=== PATIENT | female | born 1945 | race Hispanic/Latino ===

== ENCOUNTER → 2019-07-12 | Day surgery (SDC) | payer MEDICARE, OTHER ==
[2019-07-08 16:00] LABS: PROTHROMBIN TIME 13.7 seconds (11.9-14.5)
[2019-07-08 16:01] LABS: PARTIAL THROMBOPLASTIN TIME 30.3 seconds (23.8-35.5)
[~2019-07-12] MED LIST: AMLODIPINE BESY10 MG PO; ASPIR 8181 MG PO; DICYCLOMINE HCL20 MG PO; FAMOTIDINE20 MG PO; FENTANYL CITRATE/PF 100MCG/2 ML INJ ONE; GLIPIZIDE-METF1 EAC2 PO; LANTUS 3ML100 UNITS/ SQ; LORAZEPAM0.5 MG PO; MELOXICAM7.5 MG PO; MIDAZOLAM HCL 2 MG/2 ML VIAL ONE; PROPOFOL IV EMULSION 10 MG/ML 50 ML VIAL ONE; SIMVASTATIN20 MG PO
--- OUTSIDE RECORDS SUMMARY | 2019-07-12 05:40 | XMS REPORT | Clinical Summary ---
Author Author [facility] Organization [facility] Address Unknown Phone Unavailable Care Team Providers Care Apartment Rental Clerk Name Role Phone Kenny Mary Gibson PCP Allergies Comments Active Allergy Reactions Severity Noted Date Levofloxacin Swelling, Low 07/12/2013 Rash Pt also gets a rash [place] (Prunus Persica) Shortness Of High 01/05/2018 Breath Penicillins Itching, 07/11/2013 Swelling Medications End Date Status Medication Sig Dispensed Refills Start Date Active albuterol (PROVENTIL Inhale 1 puff 0 HFA;VENTOLIN HFA) 90 by mouth via mcg/actuation inhaler inhaler every 6 (six) hours as needed. Active glipiZIDE-metFORMIN Take 1 tablet 0 (METAGLIP) 5-500 mg per by mouth 2 tablet (two) times daily before meals. Active atorvastatin (LIPITOR) 10 Take 40 mg by 0 MG tablet mouth daily . Active aspirin 81 MG chewable Take 81 mg by 0 tablet mouth daily. Active valsartan-hydrochlorothia Take 1 tablet 0 zide (DIOVAN-HCT) by mouth 160-12.5 mg per tablet daily. Active insulin glargine (LANTUS) Inject 30 0 100 unit/mL injection Units subcutaneousl y nightly Use as directed . Active acetaminophen-codeine Take 1 tablet 0 (TYLENOL #3) 300-30 mg by mouth per tablet every 4 (four) hours as needed for Pain. Active khrmyoyxij-yqhvpupiie-jmn Take 1 20 capsule 0 -cod (FIORICET WITH capsule by 6 CODEINE) 82-055-55-30 mg mouth every 4 Cap (four) hours. Active glucometer (FREESTYLE) Use as 1 each 0 Misc directed. 9 Blood glucose meter with strips. 12/10/2018 metoprolol (TOPROL-XL) 25 Take 1 tablet 30 tablet 11 MG 24 hr tablet (25 mg total) 8 by mouth daily. Active Problems Problem Noted Date Pancolitis 01/05/2018 Sepsis 01/05/2018 Diarrhea of infectious origin 01/05/2018 Lactic acidosis 01/05/2018 Chest pain, unspecified type 12/09/2017 Diabetes mellitus 12/09/2017 Hypercholesteremia 12/09/2017 Hypertension 12/09/2017 Encounters Care Team Description Date Type Specialty Hector Bautista Jr., MD Generalized headache (Primary Dx); Hypoglycemia due to insulin; Acute nonintractable headache, unspecified headache type; Essential hypertension 06/03/2019 Emergency Emergency Medicine 06/03/2019 Orders Only General Internal Medicine 06/03/2019 Travel after 07/11/2018 Social History Date Tobacco Use Types Packs/Day Years Used Never Smoker Smokeless Tobacco: Never Used Alcohol Use Drinks/Week oz/Week Comments No Sex Assigned at Date Recorded Not on file Industry Job Start Date Occupation Not on file Not on file Not on file Travel End Travel History Travel Start No recent travel history available. Last Filed Vital Signs Time Taken Vital Sign Reading 06/03/2019 12:29 PM CDT Blood Pressure 126/88 06/03/2019 12:29 PM CDT Pulse 68 06/03/2019 12:29 PM CDT Temperature 37.1 C (98.7 F) 06/03/2019 12:29 PM CDT Respiratory Rate 18 06/03/2019 12:15 PM CDT Oxygen Saturation 97% - Inhaled Oxygen - Concentration 06/03/2019 9:43 AM CDT Weight 64.9 kg (143 lb) 06/03/2019 9:43 AM CDT Height 157.5 cm (5' 2") 06/03/2019 9:43 AM CDT Body Mass Index 26.16 Plan of Treatment Not on file Procedures Comments Procedure Name Priority Date/Time Associated Diagnosis REPORT OF PROCEDURE - 06/08/2019 ENDOSCOPY SCAN 1:50 PM CDT REPORT OF PROCEDURE - 06/08/2019 ENDOSCOPY SCAN 1:50 PM CDT ECG 12-LEAD Routine 06/03/2019 11:37 AM CDT ECG 12-LEAD Routine 06/03/2019 11:37 AM CDT Procedure Note - Interface, External Ris In - 06/03/2019 6:05 PM CDT Ventricula r Rate 85 BPM Atrial Rate 72 BPM QRS Duration 86 ms Q-T Interval 428 ms QTC Calculatio n(Bazett) 509 ms R Ponder 25 degrees T Ponder 256 degrees Suspect unspecifie d pacemaker failure Undetermin ed rhythm Left ventricula r hypertroph y with repolariza tion abnormalit y Prolonged QT Abnormal ECG When compared with ECG of 9 11:09, Significan t changes have occurred ECG 12-LEAD Routine 06/03/2019 11:09 AM CDT Procedure Note - Interface, External Ris In - 06/03/2019 6:05 PM CDT Ventricula r Rate 59 BPM Atrial Rate 59 BPM P-R Interval 142 ms QRS Duration 82 ms Q-T Interval 478 ms QTC Calculatio n(Bazett) 473 ms P Ponder 67 degrees R Ponder 74 degrees T Ponder 69 degrees Sinus bradycardi a Septal infarct (cited on or before 8) Abnormal ECG When compared with ECG of 8 10:18, Questionab le change in QRS axis ECG 12-LEAD STAT 06/03/2019 11:09 AM CDT CBC W/PLT COUNT & AUTO STAT 06/03/2019 DIFFERENTIAL 10:41 AM CDT URINALYSIS W/ REFLEX STAT 06/03/2019 URINE CULTURE 10:41 AM CDT CBC W/PLT COUNT & AUTO STAT 06/03/2019 DIFFERENTIAL 10:41 AM CDT TROPONIN I STAT 06/03/2019 10:41 AM CDT B-TYPE NATRIURETIC FACTOR STAT 06/03/2019 (BNP) 10:41 AM CDT MAGNESIUM STAT 06/03/2019 10:41 AM CDT BASIC METABOLIC PANEL (7) STAT 06/03/2019 10:41 AM CDT XR CHEST 1 VIEW STAT 06/03/2019 PORTABLE/BEDSIDE 10:37 AM CDT after 07/11/2018 Results * EKG-SCANNED (06/08/2019 1:50 PM CDT) Only the most recent of 2 results within the time period is included. Narrative Performed At * ECG 12 lead (06/03/2019 11:37 AM CDT) Only the most recent of 2 results within the time period is included. Specimen Narrative Performed At Ventricular Rate 85 BPM GE MUSE Atrial Rate 72 BPM QRS Duration 86 ms Q-T Interval 428 ms QTC Calculation(Bazett) 509 ms R Ponder 25 degrees T Ponder 256 degrees Demand ventricular pacemaker. Premature ventricular complexes Premature atrial complexes with intermittent aberrant ventricular conduction Left ventricular hypertrophy with repolarization abnormality Prolonged QT Abnormal ECG When compared with ECG of 03-JUN-2019 11:09, Significant changes have occurred Confirmed by Andrew FARIA BASANT ([id number]) on 06/04/2019 12:35:39 PM Procedure Note Interface, External Ris In - 06/04/2019 12:35 PM CDT Ventricular Rate 85 BPM Atrial Rate 72 BPM QRS Duration 86 ms Q-T Interval 428 ms QTC Calculation(Bazett) 509 ms R Ponder 25 degrees T Ponder 256 degrees Demand ventricular pacemaker. Premature ventricular complexes Premature atrial complexes with intermittent aberrant ventricular conduction Left ventricular hypertrophy with repolarization abnormality Prolonged QT Abnormal ECG When compared with ECG of 03-JUN-2019 11:09, Significant changes have occurred Confirmed by Andrew FARIA BASANT ([id number]) on 06/04/2019 12:35:39 PM Performing Organization Address City/State/Zipcode Phone Number [facility] * Urinalysis w/Microscopic + Reflex to Culture (06/03/2019 10:41 AM CDT) Color, UA Light Yellow [facility] Clarity, UA Clear [facility] Specific [place], UA 1.014 1.001 - 1.035 [facility] pH, UA 6.0 5.0 - 8.0 [facility] Protein, UA Negative Negative [facility] Glucose, UA >1000 mg/dL (A) Negative [facility] Ketones, UA Negative Negative [facility] Bilirubin, UA Negative Negative [facility] Blood, UA Negative Negative [facility] Nitrite, UA Negative Negative [facility] Leukocytes, UA Negative Negative [facility] Urobilinogen, UA 0.2 0.2 - 1.0 mg/dL [facility] RBC, UA 1 /HPF [facility] WBC, UA 1 /HPF [facility] Mucus Rare [facility] Squam Epithel, UA 2 /HPF [facility] Specimen Source [facility] Specimen Urine Performing Organization Address City/State/Zipcode Phone Number [facility] [address] [place] [address] [facility] * CBC with platelet count + automated diff (06/03/2019 10:41 AM CDT) WBC 6.2 3.5 - 10.5 K/L [facility] RBC 4.98 3.93 - 5.22 M/L [facility] Hemoglobin 13.3 11.2 - 15.7 GM/DL [facility] Hematocrit 40.3 34.1 - 44.9 % [facility] MCV 80.9 79.4 - 94.8 fL [facility] MCH 26.7 25.6 - 32.2 pg [facility] MCHC 33.0 32.2 - 35.5 GM/DL [facility] RDW 13.6 11.7 - 14.4 % [facility] Platelets 232 150 - 450 K/CU MM [facility] MPV 8.9 (L) 9.4 - 12.3 fL [facility] nRBC 0 0 - 0 /100 WBC [facility] % Neutros 78 % [facility] % Lymphs 15 % [facility] % Monos 5 % [facility] % Eos 1 % [facility] % Baso 0 % [facility] # Neutros 4.84 1.56 - 6.13 K/L [facility] # Lymphs 0.96 (L) 1.18 - 3.74 K/L [facility] # Monos 0.32 0.24 - 0.36 K/L [facility] # Eos 0.09 0.04 - 0.36 K/L [facility] # Baso 0.02 0.01 - 0.08 K/L [facility] Immature 0 0 - 1 % [facility] Granulocytes-[facility] Specimen Blood Performing Organization Address City/State/Zipcode Phone Number [address] [address] [facility] * Troponin I (06/03/2019 10:41 AM CDT) Troponin I <0.01 0.00 - 0.03 ng/mL [facility] Specimen Blood Narrative Performed At Troponin I (TnI) levels must be interpreted in the context of the presenting [facility] symptoms and the clinical findings. Elevated TnI levels indicate myocardial [facility] damage, but are not specific for ischemic heart disease. Elevated TnI levels are seen in patients with other cardiac conditions (including myocarditis and congestive heart failure), and slight TnI elevations occur in patients with other conditions, including sepsis, renal failure, acidosis, acute neurological disease, and persistent tachyarrhythmia. Performing Organization Address City/State/Zipcode Phone Number [place] [phone] [place] [address] [facility] * B-type Natriuretic Factor (BNP) (06/03/2019 10:41 AM CDT) BNP 115 (H) 0 - 100 pg/mL [facility] Specimen Blood Performing Organization Address City/[facility]/Zipcode Phone Number [facility] [address] [place], [place] [id number] [facility] * Magnesium (06/03/2019 10:41 AM CDT) Magnesium 1.9 1.6 - 2.6 mg/dL [facility] Specimen Blood Performing Organization Address City/[facility]/Zipcode Phone Number [facility] [address] [place] [address] [facility] * Basic Metabolic Panel (06/03/2019 10:41 AM CDT) Sodium 139 136 - 145 meq/L [facility] Potassium 3.8 3.5 - 5.1 meq/L [facility] Chloride 109 (H) 98 - 107 meq/L [facility] CO2 23 22 - 29 meq/L [facility] BUN 14 7 - 21 mg/dL [facility] Creatinine 0.67 0.57 - 1.25 mg/dL [facility] Glucose 225 (H) 70 - 105 mg/dL [facility] Calcium 9.1 8.4 - 10.2 mg/dL [facility] EGFR 86Comment: ESTIMATED GFR IS mL/min/1.[address] [facility] NOT ACCURATE CREATININE [facility] CLEARANCE IN PREDICTING GLOMERULAR FILTRATION RATE. ESTIMATED GFR IS NOT APPLICABLE FOR DIALYSIS PATIENTS. Specimen Blood Performing Organization Address City/[facility]/Zipcode Phone Number [place] [phone] [place] [address] [facility] * XR chest 1 view portable / bedside (06/03/2019 10:37 AM CDT) Specimen Narrative Performed At FINAL REPORT [facility] INDICATION: chest pain COMPARISON: January 04, 2018 TECHNIQUE: Single frontal view of the chest. FINDINGS: Lungs and pleura: Clear lungs. No effusion. Heart and mediastinum: Normal heart size. Unremarkable mediastinal contours. Osseous structures: No acute abnormality. Other: None. IMPRESSION: No acute intrathoracic abnormality. Signed: JR Chilel Robert MD Report Verified Date/Time:06/03/2019 10:41:29 Reading Location: [facility] Radiology Reading Room Procedure Note Interface, External Ris In - 06/03/2019 10:43 AM CDT FINAL REPORT INDICATION: chest pain COMPARISON: January 04, 2018 TECHNIQUE: Single frontal view of the chest. FINDINGS: Lungs and pleura: Clear lungs. No effusion. Heart and mediastinum: Normal heart size. Unremarkable mediastinal contours. Osseous structures: No acute abnormality. Other: None. IMPRESSION: No acute intrathoracic abnormality. Signed: JR Chilel Robert MD Report Verified Date/Time: 06/03/2019 10:41:29 Reading Location: [facility] Radiology Reading Room Performing Organization Address City/State/Zipcode Phone Number [facility] after 07/11/2018 Insurance Payer Benefit Subscriber ID Type Phone Address Plan / Group MEDICAID - MEDICAID [place]GD MEDICAID xxxxxxxxx Medicaid [employer] [facility]-Cont[place] [facility] MEDIC[facility] MGD CARE MEDICARE HMO Advance Directives For more information, please contact: [address] [address] Date Inactivated Comments Code Status Date Activated 01/11/2018 7:48 PM Full Code 01/05/2018 9:07 AM This code status was determined by: Patient 01/05/2018 9:07 AM Full Code 01/04/2018 11:20 PM This code status was determined by: Patient 12/10/2017 6:40 PM Full Code 12/09/2017 2:52 PM This code status was determined by: Patient
--- OUTSIDE RECORDS SUMMARY | 2019-07-12 05:40 | XMS REPORT ---
Author Author [facility] Address Unknown Phone Unavailable Care Team Providers Care Physics Technical Officer Name Role Phone UNKNOWN, REFFERING PP Unavailable LEON ACEVEDO Unavailable Unavailable JACKICésar JACKI Unavailable Unavailable LASHAUN GOLDSTEIN Unavailable Unavailable LEMUEL BERNARDO Unavailable Unavailable Problems This patient has no known problems. Allergies, Adverse Reactions, Alerts This patient has no known allergies or adverse reactions. Medications This patient has no known medications. Encounters Start Date/Time End Date/Time Encounter Type Admission Type Attending Clinicians Care Facility Care Department Encounter ID 2018-02-12 08:04:00 2018-02-12 08:04:00 [facility] [id number] 2018-01-13 12:13:00 2018-01-13 12:13:00 Outpatient [facility] [id number] 2017-11-17 07:27:00 2017-11-17 07:27:00 Outpatient [facility] [id number] Results Test Description Test Time Test Comments Text Results Atomic Results Result Comments TROPONIN I 2019-06-03 11:19:00 TROPONIN I (LAZARO) (test kccc=852) < ng/mL 0.00-0.03 Troponin I (TnI) levels must be interpreted in the context of the presenting sym ptoms and the clinical findings. Elevated TnI levels indicate myocardial damage, but are not specific for ischemic heart disease. Elevated TnI levels are seen in patients with other cardiac conditions (including myocarditis and congestive h eart failure), and slight TnI elevations occur in patients with other conditions , including sepsis, renal failure, acidosis, acute neurological disease, and per sistent tachyarrhythmia.B-TYPE NATRIURETIC FACTOR (BNP)2019-06-03 11:18:00* Test Item Value Reference Range Comments B-TYPE NATRIURETIC PEPTIDE (LAZARO) (test gsay=410) 115 pg/mL 0-100 [id number] 11:12:00* Test Item Value Reference Range Comments MAGNESIUM (BEAKER) (test rlja=949) 1.9 mg/dL 1.6-2.6 BASIC METABOLIC [id number] 11:12:00* Test Item Value Reference Range Comments SODIUM (BEAKER) (test ltqa=447) 139 meq/L 136-145 POTASSIUM (BEAKER) (test wfev=263) 3.8 meq/L 3.5-5.1 CHLORIDE (BEAKER) (test khsv=671) 109 meq/L 98-107 CO2 (BEAKER) (test pluu=201) 23 meq/L 22-29 BLOOD UREA NITROGEN (BEAKER) (test ftop=076) 14 mg/dL 7-21 CREATININE (BEAKER) (test nwct=797) 0.67 mg/dL 0.57-1.25 GLUCOSE RANDOM (BEAKER) (test scvc=991) 225 mg/dL 70-105 CALCIUM (BEAKER) (test nuqo=875) 9.1 mg/dL 8.4-10.2 EGFR (BEAKER) (test iaob=6050) 86 mL/min/1.73 sq m ESTIMATED GFR IS NOT ACCURATE CREATININE CLEARANCE IN PREDICTING GLOMERULAR FILTRATION RATE. ESTIMATED GFR IS NOT APPLICABLE FOR DIALYSIS PATIENTS. URINALYSIS W/ REFLEX URINE [id number] 11:07:00* Test Item Value Reference Range Comments COLOR (BEAKER) (test ntle=281) Light Yellow CLARITY (BEAKER) (test ubzm=145) Clear SPECIFIC GRAVITY UA (BEAKER) (test ckxa=348) 1.014 1.001-1.035 PH UA (BEAKER) (test omkt=557) 6.0 5.0-8.0 PROTEIN UA (BEAKER) (test lvws=141) Negative Negative GLUCOSE UA (BEAKER) (test fumm=550) >1000 mg/dL Negative KETONES UA (BEAKER) (test dxug=075) Negative Negative BILIRUBIN UA (BEAKER) (test rnry=987) Negative Negative BLOOD UA (BEAKER) (test zpyq=490) Negative Negative NITRITE UA (BEAKER) (test uegp=037) Negative Negative LEUKOCYTE ESTERASE UA (BEAKER) (test jrzi=474) Negative Negative UROBILINOGEN UA (BEAKER) (test csgu=664) 0.2 mg/dL 0.2-1.0 RBC UA (BEAKER) (test nqyw=723) 1 /HPF WBC UA (BEAKER) (test eyvc=721) 1 /HPF MUCUS (BEAKER) (test slle=3197) Rare SQUAMOUS EPITHELIAL (BEAKER) (test xilb=516) 2 /HPF SOURCE(BEAKER) (test ucau=2094) CBC W/PLT COUNT & AUTO [id number] 10:48:00* Test Item Value Reference Range Comments WHITE BLOOD CELL COUNT (BEAKER) (test pzwc=862) 6.2 K/ L 3.5-10.5 RED BLOOD CELL COUNT (BEAKER) (test qqbh=312) 4.98 M/ L 3.93-5.22 HEMOGLOBIN (BEAKER) (test mpdm=293) 13.3 GM/DL 11.2-15.7 HEMATOCRIT (BEAKER) (test svgz=668) 40.3 % 34.1-44.9 MEAN CORPUSCULAR VOLUME (BEAKER) (test ntqw=464) 80.9 fL 79.4-94.8 MEAN CORPUSCULAR HEMOGLOBIN (BEAKER) (test ttvh=647) 26.7 pg 25.6-32.2 MEAN CORPUSCULAR HEMOGLOBIN CONC (BEAKER) (test trzj=657) 33.0 GM/DL 32.2-35.5 RED CELL DISTRIBUTION WIDTH (BEAKER) (test gwfr=306) 13.6 % 11.7-14.4 PLATELET COUNT (BEAKER) (test msvu=205) 232 K/CU MM 150-450 MEAN PLATELET VOLUME (BEAKER) (test zvfq=793) 8.9 fL 9.4-12.3 NUCLEATED RED BLOOD CELLS (BEAKER) (test yxol=954) 0 /100 WBC 0-0 NEUTROPHILS RELATIVE PERCENT (BEAKER) (test ytwl=715) 78 % LYMPHOCYTES RELATIVE PERCENT (BEAKER) (test bxjj=433) 15 % MONOCYTES RELATIVE PERCENT (BEAKER) (test fpzo=389) 5 % EOSINOPHILS RELATIVE PERCENT (BEAKER) (test rwgz=781) 1 % BASOPHILS RELATIVE PERCENT (BEAKER) (test kdec=221) 0 % NEUTROPHILS ABSOLUTE COUNT (BEAKER) (test xzpt=617) 4.84 K/ L 1.56-6.13 LYMPHOCYTES ABSOLUTE COUNT (BEAKER) (test mwgg=919) 0.96 K/ L 1.18-3.74 MONOCYTES ABSOLUTE COUNT (BEAKER) (test wxov=425) 0.32 K/ L 0.24-0.36 EOSINOPHILS ABSOLUTE COUNT (BEAKER) (test hcjn=978) 0.09 K/ L 0.04-0.36 BASOPHILS ABSOLUTE COUNT (BEAKER) (test xomb=810) 0.02 K/ L 0.01-0.08 IMMATURE GRANULOCYTES-RELATIVE PERCENT (BEAKER) (test hwjm=9778) 0 % 0-1 RAD, CHEST, 1 VIEW, NON [id number] 10:41:00Reason for exam:->chest painFINAL REPORT INDICATION: chest pain COMPARISON: January 04, 2018 TECHNIQUE: Single frontal view of the chest. FINDINGS: Lungs and pleura: Clear lungs. No effusion.Heart and mediastinum: Normal heart size. Unremarkable m ediastinal contours.Osseous structures: No acute abnormality.Other: None. IMPRE SSION: No acute intrathoracic abnormality. Signed: JR Chilel Robert MDRe port Verified Date/Time: 06/03/2019 10:41:29 Reading Location: [facility] Reading Room Electronically signed by: LISA CHILEL on 05/19 10:41 AM Emmy-Rapid Urea (H.Pylori)2018-02-12 20:00:00Specimen: BiopsyCollected: 02/12/2018 11:21 Status: Final Last Updated: 02/12/2018 20:00 H. pylori (1 hour) (Final) (Final) Rapid urease negative H. pylori (4 hours) (Final) (Final) Rapid urease negative POC Glucose, Blood 2018-02-12 09:20:00* Test Item Value Reference Range Comments POC Glucose (test code=POCGLUC) 167 mg/dL 70-115 If you consider your patient critically ill, the Dian Accu-Chek InformII metershould not be used for Glucose determinations.Draw a venous Glucose and send to the Main Lab for Analysis. POCT-GLUCOSE [id number] 12:09:00* Test Item Value Reference Range Comments POC-GLUCOSE METER (BEAKER) (test wxlu=9345) 195 mg/dL 70-110 TESTED AT [place] [address] GI PATHOGEN PROFILE BY [id number] 11:17:00* Test Item Value Reference Range Comments CAMPYLOBACTER (PCR) (test pnmu=8150491) Not detected Not detected, Inconclusive CLOSTRIDIUM DIFFICILE (PCR) (test eegq=6450079) Not detected Not detected, Inconclusive REFER TO CDIFF PCR FOR RESULTThis is a corrected result. Previous result was Not detected on 01/11/2018 at 1114 CDT PLESIOMONAS SHIGELLOIDES (PCR) (test hyid=5977450) Not detected Not detected, Inconclusive SALMONELLA (PCR) (test iujw=9706613) Not detected Not detected, Inconclusive YERSINIA ENTEROCOLITICA (PCR) (test uyzo=6456167) Not detected Not detected, Inconclusive VIBRIO CHOLERAE (PCR) (test rhte=3398337) Not detected Not detected, Inconclusive ENTEROAGGREGATIVE E. COLI (EAEC) BY PCR (test lkqd=4766940) Not detected Not detected, Inconclusive ENTEROPATHOGENIC E. COLI (EPEC) BY PCR (test nrhp=3640190) Not detected Not detected, Inconclusive ENTEROTOXIGENIC E. COLI (ETEC) LT/ST BY PCR (test cdmj=5004828) Not detected Not detected, Inconclusive SHIGA-LIKE TOXIN-PRODUCING E. COLI (STEC) STX1/STX2 (test idex=1861147) Not detected Not detected, Inconclusive E. COLI O157 (PCR) (test wmed=9459265) Not detected Not detected, Inconclusive SHIGELLA/ENTEROINVASIVE E. COLI (EIEC) BY PCR (test ffpm=5877873) Not detected Not detected, Inconclusive CRYPTOSPORIDIUM (PCR) (test cbrk=3160231) Not detected Not detected, Inconclusive CYCLOSPORA CAYETANENSIS (PCR) (test jagx=7248826) Not detected Not detected, Inconclusive ENTAMOEBA HISTOLYTICA (PCR) (test yjfe=7790254) Not detected Not detected, Inconclusive GIARDIA LAMBLIA (PCR) (test mpfh=0433577) Not detected Not detected, Inconclusive ADENOVIRUS F 40/41 (PCR) (test dcwt=6474693) Not detected Not detected, Inconclusive ASTROVIRUS (PCR) (test cifa=9503307) Not detected Not detected, Inconclusive NOROVIRUS GI/GII (PCR) (test dlrw=4119509) Not detected Not detected, Inconclusive ROTAVIRUS A (PCR) (test pwbk=7230405) Not detected Not detected, Inconclusive SAPOVIRUS (I, II, IV, V) BY PCR (test pqht=2481783) Not detected Not detected, Inconclusive NOT DETECTEDPanel is negative for [employer] GI Panel-detectable organisms. Please refer to traditional culture, sensitivity, ova and parasite results as they beco me available.Tested at [facility] using the [employer] ([employer] | [place], [place]). This test has been FDA Approved a nd verification was performed prior to clinical use. Reference Range: Not Detect edPOCT-GLUCOSE [id number] 07:56:00* Test Item Value Reference Range Comments POC-GLUCOSE METER (BEAKER) (test utkf=9162) 114 mg/dL 70-110 TESTED AT [facility] [address] [facility] [address] [id number] 05:47:00* Test Item Value Reference Range Comments PHOSPHORUS (BEAKER) (test qndj=044) 2.9 mg/dL 2.3-4.7 [id number] 05:47:00* Test Item Value Reference Range Comments MAGNESIUM (BEAKER) (test awsg=226) 1.9 mg/dL 1.6-2.6 BASIC METABOLIC [id number] 05:47:00* Test Item Value Reference Range Comments SODIUM (BEAKER) (test ktlp=107) 137 meq/L 136-145 POTASSIUM (BEAKER) (test wnpy=429) 4.2 meq/L 3.5-5.1 CHLORIDE (BEAKER) (test gtap=963) 107 meq/L 98-107 CO2 (BEAKER) (test gnrb=432) 21 meq/L 22-29 BLOOD UREA NITROGEN (BEAKER) (test mqwa=662) 3 mg/dL 7-21 CREATININE (BEAKER) (test qajm=470) 0.58 mg/dL 0.57-1.25 GLUCOSE RANDOM (BEAKER) (test vpnu=765) 111 mg/dL 70-105 CALCIUM (BEAKER) (test qcvv=302) 8.2 mg/dL 8.4-10.2 EGFR (BEAKER) (test prlf=0083) 102 mL/min/1.73 sq m ESTIMATED GFR IS NOT ACCURATE CREATININE CLEARANCE IN PREDICTING GLOMERULAR FILTRATION RATE. ESTIMATED GFR IS NOT APPLICABLE FOR DIALYSIS PATIENTS. POCT-GLUCOSE [id number] 21:34:00* Test Item Value Reference Range Comments POC-GLUCOSE METER (BEAKER) (test iiyd=6247) 166 mg/dL 70-110 TESTED AT [address] [address] POCT-GLUCOSE [id number] 17:41:00* Test Item Value Reference Range Comments POC-GLUCOSE METER (BEAKER) (test plzh=2138) 159 mg/dL 70-110 TESTED AT [address] [address] POCT-GLUCOSE [id number] 12:22:00* Test Item Value Reference Range Comments POC-GLUCOSE METER (BEAKER) (test dyyi=9457) 215 mg/dL 70-110 TESTED AT [address] [address] POCT-GLUCOSE [id number] 08:37:00* Test Item Value Reference Range Comments POC-GLUCOSE METER (BEAKER) (test lmjw=0336) 106 mg/dL 70-110 TESTED AT [address] [address] BASIC METABOLIC [id number] 08:24:00* Test Item Value Reference Range Comments SODIUM (BEAKER) (test dqyn=095) 137 meq/L 136-145 POTASSIUM (BEAKER) (test blpp=408) 3.5 meq/L 3.5-5.1 CHLORIDE (BEAKER) (test aunx=782) 110 meq/L 98-107 CO2 (BEAKER) (test kvdk=372) 19 meq/L 22-29 BLOOD UREA NITROGEN (BEAKER) (test vcwc=004) 2 mg/dL 7-21 CREATININE (BEAKER) (test doug=575) 0.53 mg/dL 0.57-1.25 GLUCOSE RANDOM (BEAKER) (test fivi=327) 112 mg/dL 70-105 CALCIUM (BEAKER) (test qegl=704) 7.9 mg/dL 8.4-10.2 EGFR (BEAKER) (test dcxi=2116) 113 mL/min/1.73 sq m ESTIMATED GFR IS NOT ACCURATE CREATININE CLEARANCE IN PREDICTING GLOMERULAR FILTRATION RATE. ESTIMATED GFR IS NOT APPLICABLE FOR DIALYSIS PATIENTS. [id number] 08:23:00* Test Item Value Reference Range Comments PHOSPHORUS (BEAKER) (test ludg=845) 2.3 mg/dL 2.3-4.7 [id number] 08:23:00* Test Item Value Reference Range Comments MAGNESIUM (BEAKER) (test kbgs=583) 1.7 mg/dL 1.6-2.6 BLOOD [id number] 06:00:00* Test Item Value Reference Range Comments CULTURE (BEAKER) (test mihc=6077) No growth in 5 days BLOOD [id number] 06:00:00* Test Item Value Reference Range Comments CULTURE (BEAKER) (test nbac=0618) No growth in 5 days POCT-GLUCOSE [id number] 20:23:00* Test Item Value Reference Range Comments POC-GLUCOSE METER (BEAKER) (test hryu=1722) 185 mg/dL 70-110 TESTED AT [facility] [address] [facility] [address] POCT-GLUCOSE [id number] 18:09:00* Test Item Value Reference Range Comments POC-GLUCOSE METER (BEAKER) (test pkja=2974) 169 mg/dL 70-110 TESTED AT [address] [address] RAD, ABDOMEN/KUB, 1 VIEW [id number] 17:49:00Reason for exam:->abdominal pain FINAL REPORT EXAM: Supine abdomen CLINICAL INDICATION: Ab dominal pain IMPRESSION: Compared with abdominal CT 01/04/2018 Colonic wall thick ening is again suspected concerning for a colitis. No definite evidence of assoc iated pneumatosis. The bowel gas pattern is otherwise nonspecific. Evaluation fo r free air below the diaphragm and air-fluid levels within the bowel is limited by supine patient positioning. CT could be performed for further evaluation if c linically warranted. Signed: Thelma Zuniga MDReport Verified Date/Time: 01/10/20 17:49:05 Reading Location: [address] Reading Room [facility] signed by: THELMA ZUNIGA M.D. on 01/09/2018 05:49 PM POCT-GLUCOSE METER 2018-01-09 13:14:00* Test Item Value Reference Range Comments POC-GLUCOSE METER (BEAKER) (test spsd=6358) 142 mg/dL 70-110 TESTED AT [address] [address] POCT-GLUCOSE [id number] 12:27:00* Test Item Value Reference Range Comments POC-GLUCOSE METER (BEAKER) (test bvjs=0707) 159 mg/dL 70-110 TESTED AT [place] [id number] [facility] [address] POCT-GLUCOSE [id number] 07:48:00* Test Item Value Reference Range Comments POC-GLUCOSE METER (BEAKER) (test lmaw=7547) 105 mg/dL 70-110 TESTED AT [address] [address] [id number] 06:49:00* Test Item Value Reference Range Comments PHOSPHORUS (BEAKER) (test jyel=182) 2.4 mg/dL 2.3-4.7 [id number] 06:49:00* Test Item Value Reference Range Comments MAGNESIUM (BEAKER) (test uvuo=550) 1.6 mg/dL 1.6-2.6 BASIC METABOLIC [id number] 06:49:00* Test Item Value Reference Range Comments SODIUM (BEAKER) (test qmci=598) 131 meq/L 136-145 POTASSIUM (BEAKER) (test btny=844) 3.3 meq/L 3.5-5.1 CHLORIDE (BEAKER) (test rfpt=833) 105 meq/L 98-107 CO2 (BEAKER) (test mzbr=204) 19 meq/L 22-29 BLOOD UREA NITROGEN (BEAKER) (test lybv=524) 4 mg/dL 7-21 CREATININE (BEAKER) (test leow=217) 0.51 mg/dL 0.57-1.25 GLUCOSE RANDOM (BEAKER) (test xeet=932) 120 mg/dL 70-105 CALCIUM (BEAKER) (test nyjm=978) 8.0 mg/dL 8.4-10.2 EGFR (BEAKER) (test mkzv=6399) 118 mL/min/1.73 sq m ESTIMATED GFR IS NOT ACCURATE CREATININE CLEARANCE IN PREDICTING GLOMERULAR FILTRATION RATE. ESTIMATED GFR IS NOT APPLICABLE FOR DIALYSIS PATIENTS. POCT-GLUCOSE [id number] 20:48:00* Test Item Value Reference Range Comments POC-GLUCOSE METER (BEAKER) (test zdsm=4582) 117 mg/dL 70-110 TESTED AT [place] [id number] [facility] [address] C-REACTIVE [id number] 13:09:00* Test Item Value Reference Range Comments C-REACTIVE PROTEIN (BEAKER) (test qmea=137) 2.92 mg/dL 0.00-0.50 POCT-GLUCOSE [id number] 13:05:00* Test Item Value Reference Range Comments POC-GLUCOSE METER (BEAKER) (test hpzc=5962) 162 mg/dL 70-110 TESTED AT [facility] [address] [facility] [address] POCT-GLUCOSE [id number] 08:04:00* Test Item Value Reference Range Comments POC-GLUCOSE METER (BEAKER) (test dlks=4243) 110 mg/dL 70-110 TESTED AT [place] [id number] [facility] [address] [id number] 06:00:00* Test Item Value Reference Range Comments PHOSPHORUS (BEAKER) (test fjyh=373) 2.1 mg/dL 2.3-4.7 [id number] 06:00:00* Test Item Value Reference Range Comments MAGNESIUM (BEAKER) (test lnkg=313) 1.9 mg/dL 1.6-2.6 BASIC METABOLIC [id number] 06:00:00* Test Item Value Reference Range Comments SODIUM (BEAKER) (test ftxr=009) 133 meq/L 136-145 POTASSIUM (BEAKER) (test xbmu=600) 4.0 meq/L 3.5-5.1 CHLORIDE (BEAKER) (test mvix=075) 107 meq/L 98-107 CO2 (BEAKER) (test eewp=997) 18 meq/L 22-29 BLOOD UREA NITROGEN (BEAKER) (test upia=630) 5 mg/dL 7-21 CREATININE (BEAKER) (test lrgv=974) 0.64 mg/dL 0.57-1.25 GLUCOSE RANDOM (BEAKER) (test fhoz=714) 104 mg/dL 70-105 CALCIUM (BEAKER) (test zoin=785) 8.3 mg/dL 8.4-10.2 EGFR (BEAKER) (test avvg=9949) 91 mL/min/1.73 sq m ESTIMATED GFR IS NOT ACCURATE CREATININE CLEARANCE IN PREDICTING GLOMERULAR FILTRATION RATE. ESTIMATED GFR IS NOT APPLICABLE FOR DIALYSIS PATIENTS. POCT-GLUCOSE [id number] 23:00:00* Test Item Value Reference Range Comments POC-GLUCOSE METER (BEAKER) (test tsyc=8541) 93 mg/dL 70-110 TESTED AT [address] [address] HEMOGLOBIN [id number] 22:29:00* Test Item Value Reference Range Comments HEMOGLOBIN A1C (BEAKER) (test iqmn=082) 10.6 % 4.3-6.1 POCT-GLUCOSE [id number] 17:59:00* Test Item Value Reference Range Comments POC-GLUCOSE METER (BEAKER) (test sviu=3043) 127 mg/dL 70-110 TESTED AT [place] [id number] STOOL CULTURE + SHIGA [id number] 14:47:00* Test Item Value Reference Range Comments CULTURE (BEAKER) (test wifz=7633) No Salmonella, Shigella or Campylobacter isolated Unable to test for Shiga Toxin 1 due to insufficient growth of specimen.Unable t o test for Shiga Toxin 2 due to insufficient growth of specimen.Resubmit [facility] if clinically indicated.POCT-GLUCOSE [id number] 12:48:00* Test Item Value Reference Range Comments POC-GLUCOSE METER (BEAKER) (test fedg=3744) 92 mg/dL 70-110 TESTED AT [address] [address] POCT-GLUCOSE [id number] 07:47:00* Test Item Value Reference Range Comments POC-GLUCOSE METER (BEAKER) (test siyp=7102) 73 mg/dL 70-110 TESTED AT [address] [address] [id number] 05:51:00* Test Item Value Reference Range Comments PHOSPHORUS (BEAKER) (test ajdr=525) 1.5 mg/dL 2.3-4.7 BASIC METABOLIC [id number] 05:49:00* Test Item Value Reference Range Comments SODIUM (BEAKER) (test mndd=037) 130 meq/L 136-145 POTASSIUM (BEAKER) (test nuzf=223) 2.9 meq/L 3.5-5.1 CHLORIDE (BEAKER) (test fqeb=902) 106 meq/L 98-107 CO2 (BEAKER) (test hdcr=386) 19 meq/L 22-29 BLOOD UREA NITROGEN (BEAKER) (test phfo=599) 4 mg/dL 7-21 CREATININE (BEAKER) (test wble=165) 0.55 mg/dL 0.57-1.25 GLUCOSE RANDOM (BEAKER) (test fdcc=227) 78 mg/dL 70-105 CALCIUM (BEAKER) (test fyrq=835) 7.8 mg/dL 8.4-10.2 EGFR (BEAKER) (test uney=6552) 108 mL/min/1.73 sq m ESTIMATED GFR IS NOT ACCURATE CREATININE CLEARANCE IN PREDICTING GLOMERULAR FILTRATION RATE. ESTIMATED GFR IS NOT APPLICABLE FOR DIALYSIS PATIENTS. [id number] 05:39:00* Test Item Value Reference Range Comments MAGNESIUM (BEAKER) (test bhuh=677) 1.6 mg/dL 1.6-2.6 CBC W/PLT COUNT & AUTO [id number] 05:19:00* Test Item Value Reference Range Comments WHITE BLOOD CELL COUNT (BEAKER) (test nwyh=110) 4.1 K/ L 3.5-10.5 RED BLOOD CELL COUNT (BEAKER) (test jzwk=069) 4.66 M/ L 3.93-5.22 HEMOGLOBIN (BEAKER) (test bzcq=704) 12.3 GM/DL 11.2-15.7 HEMATOCRIT (BEAKER) (test loyy=449) 35.8 % 34.1-44.9 MEAN CORPUSCULAR VOLUME (BEAKER) (test ivfy=332) 76.8 fL 79.4-94.8 MEAN CORPUSCULAR HEMOGLOBIN (BEAKER) (test bnij=066) 26.4 pg 25.6-32.2 MEAN CORPUSCULAR HEMOGLOBIN CONC (BEAKER) (test fvbd=324) 34.4 GM/DL 32.2-35.5 RED CELL DISTRIBUTION WIDTH (BEAKER) (test xosc=681) 13.6 % 11.7-14.4 PLATELET COUNT (BEAKER) (test sona=800) 190 K/CU MM 150-450 MEAN PLATELET VOLUME (BEAKER) (test card=356) 9.5 fL 9.4-12.3 NUCLEATED RED BLOOD CELLS (BEAKER) (test nthr=599) 0 /100 WBC 0-0 NEUTROPHILS RELATIVE PERCENT (BEAKER) (test gruu=355) 68 % LYMPHOCYTES RELATIVE PERCENT (BEAKER) (test szxy=477) 17 % MONOCYTES RELATIVE PERCENT (BEAKER) (test vjzb=131) 13 % EOSINOPHILS RELATIVE PERCENT (BEAKER) (test kssy=919) 1 % BASOPHILS RELATIVE PERCENT (BEAKER) (test oscy=923) 1 % NEUTROPHILS ABSOLUTE COUNT (BEAKER) (test urbi=825) 2.82 K/ L 1.56-6.13 LYMPHOCYTES ABSOLUTE COUNT (BEAKER) (test utrv=089) 0.70 K/ L 1.18-3.74 MONOCYTES ABSOLUTE COUNT (BEAKER) (test befv=248) 0.52 K/ L 0.24-0.36 EOSINOPHILS ABSOLUTE COUNT (BEAKER) (test jpfn=375) 0.04 K/ L 0.04-0.36 BASOPHILS ABSOLUTE COUNT (BEAKER) (test tkfa=998) 0.02 K/ L 0.01-0.08 IMMATURE GRANULOCYTES-RELATIVE PERCENT (BEAKER) (test pdvn=5337) 1 % 0-1 POCT-GLUCOSE [id number] 21:19:00* Test Item Value Reference Range Comments POC-GLUCOSE METER ([facility]) (test hmie=8793) 158 mg/dL 70-110 TESTED AT [place] [id number] POCT-GLUCOSE [id number] 17:22:00* Test Item Value Reference Range Comments POC-GLUCOSE METER (AKER) (test hgwm=5524) 134 mg/dL 70-110 TESTED AT [address] [address] POCT-GLUCOSE [id number] 12:11:00* Test Item Value Reference Range Comments POC-GLUCOSE METER ([facility]) (test npgk=9359) 127 mg/dL 70-110 TESTED AT [address] [address] STOOL PATH [id number] 10:49:00* Test Item Value Reference Range Comments PATHOGEN EXAM CHARGED ([facility]) (test jcew=1946) Done CLOSTRIDIUM DIFFICILE TOXIN [id number] 09:03:00* Test Item Value Reference Range Comments CLOSTRIDIUM DIFFICILE TOXIN, PCR ([facility]) (test yxqd=2652) Not Detected Not Detected This qualitative real-time polymerase chain reaction assay detects the tcdB gene , encoded on the C.difficile pathogenicity locus (PaLoc). The product of tcdB, toxin B, is a cytotoxin essential for causing C.difficile-associated disease (CD AD) and is found in virtually all toxigenic C.difficile.This assay is performed for patients suspected of having either community-acquired or nosocomial CDAD. Accordingly, only symptomatic patients should be tested and formed stools will b e rejected unless ileus is present (i.e., specified when ordering). Patients ma y be colonized with toxigenic C.difficile strains not causing active disease; th erefore, clinical correlation is needed when deciding how to manage patients wit h a positive test result.The assay has not been validated as a test of cure as a mplifiable nucleic acid may persist after effective treatment; therefore, follow -up testing of a positive result is not recommended.[id number] 08:52:00* Test Item Value Reference Range Comments PHOSPHORUS (BEAKER) (test wfzf=606) 1.2 mg/dL 2.3-4.7 POCT-GLUCOSE [id number] 08:04:00* Test Item Value Reference Range Comments POC-GLUCOSE METER (BEAKER) (test nqnd=0361) 89 mg/dL 70-110 TESTED AT [address] [address] POCT-GLUCOSE [id number] 07:38:00* Test Item Value Reference Range Comments POC-GLUCOSE METER (BEAKER) (test lqho=2239) 65 mg/dL 70-110 TESTED AT [address] [address] [id number] 06:35:00* Test Item Value Reference Range Comments MAGNESIUM (BEAKER) (test pyxi=901) 2.3 mg/dL 1.6-2.6 BASIC METABOLIC [id number] 06:35:00* Test Item Value Reference Range Comments SODIUM (BEAKER) (test lezk=464) 126 meq/L 136-145 POTASSIUM (BEAKER) (test mzjs=142) 2.9 meq/L 3.5-5.1 CHLORIDE (BEAKER) (test eckk=675) 104 meq/L 98-107 CO2 (BEAKER) (test hjiu=938) 19 meq/L 22-29 BLOOD UREA NITROGEN (BEAKER) (test afah=763) 7 mg/dL 7-21 CREATININE (BEAKER) (test jmeh=669) 0.59 mg/dL 0.57-1.25 GLUCOSE RANDOM (BEAKER) (test rywn=584) 81 mg/dL 70-105 CALCIUM (BEAKER) (test mpqc=198) 8.0 mg/dL 8.4-10.2 EGFR (BEAKER) (test ipuo=9067) 100 mL/min/1.73 sq m ESTIMATED GFR IS NOT ACCURATE CREATININE CLEARANCE IN PREDICTING GLOMERULAR FILTRATION RATE. ESTIMATED GFR IS NOT APPLICABLE FOR DIALYSIS PATIENTS. CBC W/PLT COUNT & AUTO [id number] 06:12:00* Test Item Value Reference Range Comments WHITE BLOOD CELL COUNT (BEAKER) (test kjuq=240) 3.9 K/ L 3.5-10.5 RED BLOOD CELL COUNT (BEAKER) (test qdno=055) 4.78 M/ L 3.93-5.22 HEMOGLOBIN (BEAKER) (test post=922) 12.8 GM/DL 11.2-15.7 HEMATOCRIT (BEAKER) (test ukwo=791) 38.1 % 34.1-44.9 MEAN CORPUSCULAR VOLUME (BEAKER) (test mxak=606) 79.7 fL 79.4-94.8 MEAN CORPUSCULAR HEMOGLOBIN (BEAKER) (test hrca=304) 26.8 pg 25.6-32.2 MEAN CORPUSCULAR HEMOGLOBIN CONC (BEAKER) (test dczx=418) 33.6 GM/DL 32.2-35.5 RED CELL DISTRIBUTION WIDTH (BEAKER) (test lxvg=274) 13.4 % 11.7-14.4 PLATELET COUNT (BEAKER) (test vqyv=115) 105 K/CU MM 150-450 MEAN PLATELET VOLUME (BEAKER) (test dbup=377) 10.2 fL 9.4-12.3 NUCLEATED RED BLOOD CELLS (BEAKER) (test zpoe=597) 0 /100 WBC 0-0 NEUTROPHILS RELATIVE PERCENT (BEAKER) (test eymq=368) 71 % LYMPHOCYTES RELATIVE PERCENT (BEAKER) (test rkyb=352) 18 % MONOCYTES RELATIVE PERCENT (BEAKER) (test dzsh=033) 9 % EOSINOPHILS RELATIVE PERCENT (BEAKER) (test amgn=874) 1 % BASOPHILS RELATIVE PERCENT (BEAKER) (test uvle=726) 1 % NEUTROPHILS ABSOLUTE COUNT (BEAKER) (test wczo=239) 2.77 K/ L 1.56-6.13 LYMPHOCYTES ABSOLUTE COUNT (BEAKER) (test xjbm=425) 0.69 K/ L 1.18-3.74 MONOCYTES ABSOLUTE COUNT (BEAKER) (test vsqr=308) 0.36 K/ L 0.24-0.36 EOSINOPHILS ABSOLUTE COUNT (BEAKER) (test dkmd=264) 0.02 K/ L 0.04-0.36 BASOPHILS ABSOLUTE COUNT (BEAKER) (test lqnr=106) 0.02 K/ L 0.01-0.08 IMMATURE GRANULOCYTES-RELATIVE PERCENT (BEAKER) (test wbrk=8248) 1 % 0-1 POCT-GLUCOSE [id number] 21:49:00* Test Item Value Reference Range Comments POC-GLUCOSE METER (BEAKER) (test wcbg=4424) 177 mg/dL 70-110 TESTED AT [address] [address] [id number] 19:39:00* Test Item Value Reference Range Comments POTASSIUM (BEAKER) (test uiqa=693) 3.8 meq/L 3.5-5.1 POCT-GLUCOSE [id number] 17:06:00* Test Item Value Reference Range Comments POC-GLUCOSE METER (BEAKER) (test slcy=3390) 218 mg/dL 70-110 TESTED AT [address] [address] POCT-GLUCOSE [id number] 11:23:00* Test Item Value Reference Range Comments POC-GLUCOSE METER (BEAKER) (test mcsq=9381) 248 mg/dL 70-110 TESTED AT [address] [address] BASIC METABOLIC [id number] 08:49:00* Test Item Value Reference Range Comments SODIUM (BEAKER) (test bvqm=389) 128 meq/L 136-145 POTASSIUM (BEAKER) (test gloy=405) 2.9 meq/L 3.5-5.1 CHLORIDE (BEAKER) (test mrwg=767) 98 meq/L 98-107 CO2 (BEAKER) (test hbwp=804) 21 meq/L 22-29 BLOOD UREA NITROGEN (BEAKER) (test gosh=077) 8 mg/dL 7-21 CREATININE (BEAKER) (test ccft=070) 0.72 mg/dL 0.57-1.25 GLUCOSE RANDOM (BEAKER) (test skmg=934) 272 mg/dL 70-105 CALCIUM (BEAKER) (test mjdm=730) 7.7 mg/dL 8.4-10.2 EGFR (BEAKER) (test mxxx=9425) 79 mL/min/1.73 sq m ESTIMATED GFR IS NOT ACCURATE CREATININE CLEARANCE IN PREDICTING GLOMERULAR FILTRATION RATE. ESTIMATED GFR IS NOT APPLICABLE FOR DIALYSIS PATIENTS. POCT-LACTIC ACID, [id number] 05:24:00* Test Item Value Reference Range Comments POC-LACTIC ACID, VENOUS (BEAKER) (test xuae=6712) 1.4 mmol/L 0.9-1.7 TESTED AT [address] [address] KETONE, [id number] 01:11:00* Test Item Value Reference Range Comments KETONES, BLOOD (BEAKER) (test zfuh=6805) 0.3 mmol/L <0.4 POCT-LACTIC ACID, [id number] 00:43:00* Test Item Value Reference Range Comments POC-LACTIC ACID, VENOUS (BEAKER) (test ewap=7750) 1.7 mmol/L 0.9-1.7 TESTED AT [address] [address] [address], [id number] 00:24:00Reason for exam:->FEVERReason for exam:-> DIARRHEAWhat is the patient's sedation requirement?->No SedationFINAL REPORT CT, ABDOMEN \\T\\ PELVIS, WITH IV CONTRAST INDICATION: "LLQ pain, suspect diverticulitisFEVERDIARRHEA" COMPARISON: None TECHNIQUE: Post contrast axially oriented images were obtained from the diaphragms through the pelvis. Coronal and sagittal reformats were provided. DOSE REDUCTION: Dose modulation, iterative reconstruction, and/or weight-based adjustment of the mA/kV was utilized to reduce the radiation dose to as low as reasonably achiev able. FINDINGS: Lung bases are grossly clear. No acute abnormality of the leyla d abdominal viscera.Fatty liver. Diffuse mild colonic wall thickening and naina lonic inflammatory change. Findings are compatible with a flynn colitis, likely in fectious. There may also be a terminal ileitis. 4 cm lytic lesion in the left anterior femoral neck with a large internal region of sclerosis along its inferi or margin. This lesion is only minimally expansile and demonstrates a sclerotic border. No definable matrix. No soft tissue component. No cortical break. 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 IMPRESSION:Probable infectious pancolitis and terminal il eitis. Consider C. difficile. Inflammatory bowel disease is also a differential consideration but considered less likely. Signed: Penelope Rayo MDReport Verif ied Date/Time: 01/05/2018 00:24:26 Reading Location: [address] Re ading Room , CHEST, 2 [id number] 23:52:00Reason for exam:->coughFINAL REPORT RAD, CHEST, 2 VIEWS INDICATION: cough COMPARISON: Chest x-ray 4 weeks ago TECHNIQUE: Frontal and lateral views of the chest. FINDINGS: Cardiomediastinal silhouette within normal limits.No overt consolidative or congestive change.No acute osseous abnormality. IMPRESSION:No acute ca rdiopulmonary abnormality. Signed: Penelope Rayo MDReport Verified Date/Time: 01/04/2018 23:52:39 Reading Location: [address] Reading Room C METABOLIC [id number] 21:24:00* Test Item Value Reference Range Comments SODIUM (BEAKER) (test mcss=637) 119 meq/L 136-145 POTASSIUM (BEAKER) (test ynmb=131) 2.9 meq/L 3.5-5.1 CHLORIDE (BEAKER) (test zffu=712) 88 meq/L 98-107 CO2 (BEAKER) (test qqge=144) 18 meq/L 22-29 BLOOD UREA NITROGEN (BEAKER) (test sdfi=417) 11 mg/dL 7-21 CREATININE (BEAKER) (test xtlg=877) 1.06 mg/dL 0.57-1.25 GLUCOSE RANDOM (BEAKER) (test dzbl=961) 489 mg/dL 70-105 CALCIUM (BEAKER) (test dygc=334) 8.5 mg/dL 8.4-10.2 EGFR (BEAKER) (test jhdi=7072) 51 mL/min/1.73 sq m ESTIMATED GFR IS NOT ACCURATE CREATININE CLEARANCE IN PREDICTING GLOMERULAR FILTRATION RATE. ESTIMATED GFR IS NOT APPLICABLE FOR DIALYSIS PATIENTS. [id number] 21:22:00* Test Item Value Reference Range Comments LIPASE (BEAKER) (test thqy=903) 59 U/L 8-78 HEPATIC FUNCTION [id number] 21:22:00* Test Item Value Reference Range Comments TOTAL PROTEIN (BEAKER) (test hzba=817) 7.5 gm/dL 6.0-8.3 ALBUMIN (BEAKER) (test hpvq=4592) 3.6 g/dL 3.5-5.0 BILIRUBIN TOTAL (BEAKER) (test bnln=834) 0.4 mg/dL 0.2-1.2 BILIRUBIN DIRECT (BEAKER) (test fovi=697) 0.2 mg/dL 0.1-0.5 ALKALINE PHOSPHATASE (BEAKER) (test zpao=012) 87 U/L 40-150 AST (SGOT) (BEAKER) (test pmbi=500) 34 U/L 5-34 ALT (SGPT) (BEAKER) (test seka=944) 21 U/L 6-55 [id number] 21:22:00* Test Item Value Reference Range Comments MAGNESIUM (BEAKER) (test jkwm=519) 1.4 mg/dL 1.6-2.6 [id number] 21:22:00* Test Item Value Reference Range Comments PHOSPHORUS (BEAKER) (test ejcx=368) 1.6 mg/dL 2.3-4.7 LACTIC ACID, VENOUS, WHOLE [id number] 21:16:00* Test Item Value Reference Range Comments LACTATE BLOOD VENOUS (2) (BEAKER) (test wyot=1099) 4.2 mmol/L 0.5-2.2 Specimen slightly hemolyzed Effective 02/20/2016: Units/Reference Range ChangeNew: 0.5-2.2 mmol/L Previous: 5 -20 mg/dLURINALYSIS W/ REFLEX URINE [id number] 21:10:00* Test Item Value Reference Range Comments COLOR (BEAKER) (test bwsh=733) Yellow CLARITY (BEAKER) (test xyor=906) Clear SPECIFIC GRAVITY UA (BEAKER) (test smjc=336) 1.017 1.001-1.035 PH UA (BEAKER) (test swur=300) 6.0 5.0-8.0 PROTEIN UA (BEAKER) (test jdio=974) 50 mg/dL Negative GLUCOSE UA (BEAKER) (test fnbm=685) >1000 mg/dL Negative KETONES UA (BEAKER) (test kpxj=674) 10 mg/dL Negative BILIRUBIN UA (BEAKER) (test cyqy=358) Negative Negative BLOOD UA (BEAKER) (test hzpf=355) Small Negative NITRITE UA (BEAKER) (test lrod=373) Negative Negative LEUKOCYTE ESTERASE UA (BEAKER) (test zgzx=948) Negative Negative UROBILINOGEN UA (BEAKER) (test qlte=976) 0.2 mg/dL 0.2-1.0 RBC UA (BEAKER) (test hylt=092) 1 /HPF WBC UA (BEAKER) (test bhmh=421) 4 /HPF MUCUS (BEAKER) (test bpxl=5024) Rare HYALINE CASTS (BEAKER) (test ovry=656) 6 /LPF SOURCE(BEAKER) (test fpct=8926) CBC W/PLT COUNT & AUTO [id number] 20:58:00* Test Item Value Reference Range Comments WHITE BLOOD CELL COUNT (BEAKER) (test fpzk=072) 5.0 K/ L 3.5-10.5 RED BLOOD CELL COUNT (BEAKER) (test anqg=139) 5.46 M/ L 3.93-5.22 HEMOGLOBIN (BEAKER) (test alei=408) 14.4 GM/DL 11.2-15.7 HEMATOCRIT (BEAKER) (test nake=283) 41.8 % 34.1-44.9 MEAN CORPUSCULAR VOLUME (BEAKER) (test wnin=388) 76.6 fL 79.4-94.8 MEAN CORPUSCULAR HEMOGLOBIN (BEAKER) (test oabt=304) 26.4 pg 25.6-32.2 MEAN CORPUSCULAR HEMOGLOBIN CONC (BEAKER) (test gagq=496) 34.4 GM/DL 32.2-35.5 RED CELL DISTRIBUTION WIDTH (BEAKER) (test evjb=214) 13.2 % 11.7-14.4 PLATELET COUNT (BEAKER) (test gexj=769) 199 K/CU MM 150-450 MEAN PLATELET VOLUME (BEAKER) (test wnoo=167) 9.8 fL 9.4-12.3 NUCLEATED RED BLOOD CELLS (BEAKER) (test bvtr=136) 0 /100 WBC 0-0 NEUTROPHILS RELATIVE PERCENT (BEAKER) (test cmhh=545) 82 % LYMPHOCYTES RELATIVE PERCENT (BEAKER) (test oydu=003) 13 % MONOCYTES RELATIVE PERCENT (BEAKER) (test vmqr=178) 5 % EOSINOPHILS RELATIVE PERCENT (BEAKER) (test qrbq=136) 0 % BASOPHILS RELATIVE PERCENT (BEAKER) (test uwnn=696) 0 % NEUTROPHILS ABSOLUTE COUNT (BEAKER) (test wbef=655) 4.11 K/ L 1.56-6.13 LYMPHOCYTES ABSOLUTE COUNT (BEAKER) (test dshy=065) 0.63 K/ L 1.18-3.74 MONOCYTES ABSOLUTE COUNT (BEAKER) (test abuq=213) 0.26 K/ L 0.24-0.36 EOSINOPHILS ABSOLUTE COUNT (BEAKER) (test ywtn=502) 0.00 K/ L 0.04-0.36 BASOPHILS ABSOLUTE COUNT (BEAKER) (test zspg=577) 0.01 K/ L 0.01-0.08 IMMATURE GRANULOCYTES-RELATIVE PERCENT (BEAKER) (test iett=3097) 1 % 0-1 PET, CARDIAC PERFUSION MULTIPLE STUDIES, REST AND [id number] 15:15:00 Reason for exam:->CHEST PAINFINAL REPORT PROCEDURE: Rest/Stress MYOCARDIAL PERFUSION PET with regadenoson\\XA9\\ CPT CODE: 72990 INDICATION: Chest pain HISTORY: Cardiac risk factors: Diabetes, hypertension, hyperlipidemia. Other cardiovascular history: No reported CAD. Recent cardiac symptoms: Chest pain. Current cardiovascular-related medications: Aspirin, losartan, hydrochlorothiazide, Lipitor. PROTOCOL: Limited low-dose CT imaging was performed for attenuation correction. 40.0 mCi of Rb-82 chloride was injected iv at rest, and gated PET (positron emission tomography) images were obtained. Subsequently, 40.0 mCi of Rb-82 chloride was injected iv at expected peak pharmacologic effect, and gated PET images were obtained. PRELIMINARY STRESS TEST DATA FROM NONINVASIVE CARDIOLOGY: Pharmacologic stress was by 10-second iv infusion of 0.4 mg of regadenoson. Radiotracer was injected 30 seconds after start of stress. Heart rate was 77 beats/min at rest and 93 beats/min (63% of MPHR) at tracer injection. BP was 137/60 mmHg at rest and 140/63 mmHg at tracer injection. Stress was stopped for predetermined endpoint. The patient experienced dyspnea; treatment was not required. Preliminary ECG evaluation revealed sinus rhythm at rest and no ischemic changes with stress. (Final ECG interpretation and other stress and monitoring data are reported separately by Cardiology.) IMAGING FINDINGS: Study quality is g ood. Images obtained after rest and stress injections show normal LV activity. L V and RV volumes appear normal. Gated images obtained at rest and with stress sh ow normal LV wall motion and thickening. LVEF at rest is greater than 70%. LVEF at stress is greater than 70%. IMPRESSION: 1. Normal study. 2. Appropriate pharmacologic stress. 3. Normal myocardial perfusion. 4. Normal resting LV fun ction. No deterioration of function is noted with pharmacologic stress. 5. Norm al extracardiac tracer distribution. 6. No previous [facility] study for comparison. NONINVASIVE RISK STRATIFICATION: The above findings are considered low risk (< 1% annual mortality rate) based on the following criterion:- Normal or small tremayne cardial perfusion defect at rest or with stress(JACC. 2012;59(9):857-81.) Signed : Tito Hicks [facility] Verified Date/Time: 12/10/2017 15:15:34 Reading Locati on: [address] [facility] Reading Room GLOBIN [id number] 14:41:00* Test Item Value Reference Range Comments HEMOGLOBIN A1C (BEAKER) (test ujrw=055) 10.1 % 4.3-6.1 POCT-GLUCOSE [id number] 12:25:00* Test Item Value Reference Range Comments POC-GLUCOSE METER (Sunbeam) (test nfgr=3256) 116 mg/dL 70-110 TESTED AT [place] [id number] [facility] [address] POCT-GLUCOSE [id number] 06:16:00* Test Item Value Reference Range Comments POC-GLUCOSE METER (Sunbeam) (test ilyx=2398) 99 mg/dL 70-110 TESTED AT [address] [address] TSH/FREE T4 IF [id number] 04:59:00* Test Item Value Reference Range Comments THYROID STIMULATING HORMONE (BEAKER) (test gjoj=184) 1.58 uIU/mL 0.35-4.94 TROPONIN [id number] 04:44:00* Test Item Value Reference Range Comments TROPONIN I (BEAKER) (test uxgy=572) < ng/mL 0.00-0.03 Troponin I (TnI) levels must be interpreted in the context of the presenting sym ptoms and the clinical findings. Elevated TnI levels indicate myocardial damage, but are not specific for ischemic heart disease. Elevated TnI levels are seen in patients with other cardiac conditions (including myocarditis and congestive h eart failure), and slight TnI elevations occur in patients with other conditions , including sepsis, renal failure, acidosis, acute neurological disease, and per sistent tachyarrhythmia.[id number] 04:42:00* Test Item Value Reference Range Comments MAGNESIUM (BEAKER) (test ofpt=354) 2.0 mg/dL 1.6-2.6 Specimen slightly hemolyzed [id number] 04:42:00* Test Item Value Reference Range Comments PHOSPHORUS (BEAKER) (test jwpy=648) 3.9 mg/dL 2.3-4.7 Specimen slightly hemolyzed BASIC METABOLIC [id number] 04:42:00* Test Item Value Reference Range Comments SODIUM (BEAKER) (test happ=146) 140 meq/L 136-145 POTASSIUM (BEAKER) (test ekmz=934) 3.9 meq/L 3.5-5.1 Specimen slightly hemolyzed CHLORIDE (BEAKER) (test iaxb=022) 107 meq/L 98-107 CO2 (BEAKER) (test yqij=432) 24 meq/L 22-29 BLOOD UREA NITROGEN (BEAKER) (test znpo=117) 12 mg/dL 7-21 CREATININE (BEAKER) (test xeqz=405) 0.64 mg/dL 0.57-1.25 Specimen slightly hemolyzed GLUCOSE RANDOM (BEAKER) (test drhh=201) 94 mg/dL 70-105 CALCIUM (BEAKER) (test bpzy=361) 9.3 mg/dL 8.4-10.2 EGFR (BEAKER) (test npck=7074) 91 mL/min/1.73 sq m ESTIMATED GFR IS NOT ACCURATE CREATININE CLEARANCE IN PREDICTING GLOMERULAR FILTRATION RATE. ESTIMATED GFR IS NOT APPLICABLE FOR DIALYSIS PATIENTS. LIPID [id number] 04:42:00* Test Item Value Reference Range Comments TRIGLYCERIDES (BEAKER) (test csvc=903) 215 mg/dL Specimen slightly hemolyzed CHOLESTEROL (BEAKER) (test jcvb=593) 245 mg/dL Specimen slightly hemolyzed HDL CHOLESTEROL (BEAKER) (test xwli=086) 49 mg/dL LDL CHOLESTEROL CALCULATED (BEAKER) (test rbba=716) 153 mg/dL Triglyceride Reference Range: Low Risk <150 Borderline 150-199 High Risk 200-499 Very High Risk >=500Cholesterol Reference Range: Low Risk <200 Borderline 200-239 High Risk >240HDL Cholesterol Reference Range: Low Risk >=60 High Risk <40LDL Cholesterol Reference Range: Optimal <100 Near Optimal 100-129 Borderline 130-159 High 160-189 Very High >=190 CBC W/PLT COUNT & AUTO [id number] 04:24:00* Test Item Value Reference Range Comments WHITE BLOOD CELL COUNT (BEAKER) (test vipr=553) 6.8 K/ L 3.5-10.5 RED BLOOD CELL COUNT (BEAKER) (test svfk=131) 5.31 M/ L 3.93-5.22 HEMOGLOBIN (BEAKER) (test lhnk=799) 14.0 GM/DL 11.2-15.7 HEMATOCRIT (BEAKER) (test kane=596) 42.1 % 34.1-44.9 MEAN CORPUSCULAR VOLUME (BEAKER) (test roin=500) 79.3 fL 79.4-94.8 MEAN CORPUSCULAR HEMOGLOBIN (BEAKER) (test hpqk=202) 26.4 pg 25.6-32.2 MEAN CORPUSCULAR HEMOGLOBIN CONC (BEAKER) (test ykfr=263) 33.3 GM/DL 32.2-35.5 RED CELL DISTRIBUTION WIDTH (BEAKER) (test zizn=887) 13.0 % 11.7-14.4 PLATELET COUNT (BEAKER) (test rdwk=577) 263 K/CU MM 150-450 MEAN PLATELET VOLUME (BEAKER) (test fgpy=518) 10.2 fL 9.4-12.3 NUCLEATED RED BLOOD CELLS (BEAKER) (test ltcx=115) 0 /100 WBC 0-0 NEUTROPHILS RELATIVE PERCENT (BEAKER) (test jenq=604) 73 % LYMPHOCYTES RELATIVE PERCENT (BEAKER) (test ruhs=917) 18 % MONOCYTES RELATIVE PERCENT (BEAKER) (test pfid=017) 6 % EOSINOPHILS RELATIVE PERCENT (BEAKER) (test wmvb=607) 3 % BASOPHILS RELATIVE PERCENT (BEAKER) (test pfiy=184) 1 % NEUTROPHILS ABSOLUTE COUNT (BEAKER) (test dscv=693) 4.97 K/ L 1.56-6.13 LYMPHOCYTES ABSOLUTE COUNT (BEAKER) (test baao=551) 1.20 K/ L 1.18-3.74 MONOCYTES ABSOLUTE COUNT (BEAKER) (test tycw=971) 0.39 K/ L 0.24-0.36 EOSINOPHILS ABSOLUTE COUNT (BEAKER) (test tmxs=199) 0.22 K/ L 0.04-0.36 BASOPHILS ABSOLUTE COUNT (BEAKER) (test btln=942) 0.04 K/ L 0.01-0.08 IMMATURE GRANULOCYTES-RELATIVE PERCENT (BEAKER) (test lmzc=7087) 0 % 0-1 CALCIUM, [id number] 04:19:00* Test Item Value Reference Range Comments CALCIUM IONIZED (BEAKER) (test wzle=588) 1.13 mmol/L 1.12-1.27 PH, BLOOD (BEAKER) (test ufiv=4372) 7.44 POCT-GLUCOSE [id number] 22:18:00* Test Item Value Reference Range Comments POC-GLUCOSE METER (BEAKER) (test zafh=6710) 233 mg/dL 70-110 TESTED AT [address] [address] CREATINE KINASE (CK), TOTAL AND [id number] 21:23:00* Test Item Value Reference Range Comments CREATINE KINASE TOTAL (BEAKER) (test rhnl=934) 41 U/L 29-200 CREATINE KINASE-MB (BEAKER) (test zwwj=754) 1.0 ng/mL 0.0-6.6 CREATINE KINASE-MB INDEX (BEAKER) (test sncy=859) 2.4 % CK-MB Reference Range:<6.7 Normal6.7-10.0 Borderline>10.0 Abnormal TROPONIN [id number] 21:23:00* Test Item Value Reference Range Comments TROPONIN I (BEAKER) (test oqyz=981) < ng/mL 0.00-0.03 Troponin I (TnI) levels must be interpreted in the context of the presenting sym ptoms and the clinical findings. Elevated TnI levels indicate myocardial damage, but are not specific for ischemic heart disease. Elevated TnI levels are seen in patients with other cardiac conditions (including myocarditis and congestive h eart failure), and slight TnI elevations occur in patients with other conditions , including sepsis, renal failure, acidosis, acute neurological disease, and per sistent tachyarrhythmia.CREATINE KINASE (CK), TOTAL AND [id number] 13:10:00* Test Item Value Reference Range Comments CREATINE KINASE TOTAL (BEAKER) (test uqdg=028) 54 U/L 29-200 CREATINE KINASE-MB (BEAKER) (test oxmy=027) 1.1 ng/mL 0.0-6.6 CREATINE KINASE-MB INDEX (BEAKER) (test ouxs=084) 2.0 % CK-MB Reference Range:<6.7 Normal6.7-10.0 Borderline>10.0 Abnormal TROPONIN [id number] 13:10:00* Test Item Value Reference Range Comments TROPONIN I (BEAKER) (test wxwh=840) < ng/mL 0.00-0.03 Troponin I (TnI) levels must be interpreted in the context of the presenting sym ptoms and the clinical findings. Elevated TnI levels indicate myocardial damage, but are not specific for ischemic heart disease. Elevated TnI levels are seen in patients with other cardiac conditions (including myocarditis and congestive h eart failure), and slight TnI elevations occur in patients with other conditions , including sepsis, renal failure, acidosis, acute neurological disease, and per sistent tachyarrhythmia.B-TYPE NATRIURETIC FACTOR (BNP)2017-12-09 13:08:00* Test Item Value Reference Range Comments B-TYPE NATRIURETIC PEPTIDE (BEAKER) (test kokc=894) 35 pg/mL 0-100 [id number] 13:01:00* Test Item Value Reference Range Comments MAGNESIUM (BEAKER) (test rcif=943) 2.0 mg/dL 1.6-2.6 BASIC METABOLIC [id number] 13:01:00* Test Item Value Reference Range Comments SODIUM (BEAKER) (test bkjl=208) 136 meq/L 136-145 POTASSIUM (BEAKER) (test nirr=924) 4.1 meq/L 3.5-5.1 CHLORIDE (BEAKER) (test czzd=381) 103 meq/L 98-107 CO2 (BEAKER) (test oyma=445) 25 meq/L 22-29 BLOOD UREA NITROGEN (BEAKER) (test ffuu=033) 15 mg/dL 7-21 CREATININE (BEAKER) (test hrsi=092) 0.71 mg/dL 0.57-1.25 GLUCOSE RANDOM (BEAKER) (test crga=013) 234 mg/dL 70-105 CALCIUM (BEAKER) (test wwaa=695) 9.7 mg/dL 8.4-10.2 EGFR (BEAKER) (test etom=3771) 81 mL/min/1.73 sq m ESTIMATED GFR IS NOT ACCURATE CREATININE CLEARANCE IN PREDICTING GLOMERULAR FILTRATION RATE. ESTIMATED GFR IS NOT APPLICABLE FOR DIALYSIS PATIENTS. [id number] 12:53:00* Test Item Value Reference Range Comments PROTIME (BEAKER) (test iyeo=168) 14.0 seconds 11.7-14.7 INR (BEAKER) (test mfst=386) 1.1 <=5.9 PARTIAL THROMBOPLASTIN TIME (BEAKER) (test wdzb=148) 29.0 seconds 22.5-36.0 RECOMMENDED COUMADIN/WARFARIN INR THERAPY RANGESSTANDARD DOSE: 2.0 - 3.0 Inclu dianne: PROPHYLAXIS for venous thrombosis, systemic embolization; TREATMENT for casandra ous thrombosis and/or pulmonary embolus.HIGH RISK: Target INR is 2.5-3.5 for pat ients with mechanical heart valves.CBC W/PLT COUNT & AUTO [id number] 12:48:00* Test Item Value Reference Range Comments WHITE BLOOD CELL COUNT (BEAKER) (test ufas=146) 7.0 K/ L 3.5-10.5 RED BLOOD CELL COUNT (BEAKER) (test fsqx=684) 5.39 M/ L 3.93-5.22 HEMOGLOBIN (BEAKER) (test rnyb=065) 14.0 GM/DL 11.2-15.7 HEMATOCRIT (BEAKER) (test zdes=306) 43.0 % 34.1-44.9 MEAN CORPUSCULAR VOLUME (BEAKER) (test utld=972) 79.8 fL 79.4-94.8 MEAN CORPUSCULAR HEMOGLOBIN (BEAKER) (test lisf=902) 26.0 pg 25.6-32.2 MEAN CORPUSCULAR HEMOGLOBIN CONC (BEAKER) (test ikdd=814) 32.6 GM/DL 32.2-35.5 RED CELL DISTRIBUTION WIDTH (BEAKER) (test qhyu=392) 12.9 % 11.7-14.4 PLATELET COUNT (BEAKER) (test ucef=342) 229 K/CU MM 150-450 MEAN PLATELET VOLUME (BEAKER) (test zmsb=510) 9.3 fL 9.4-12.3 NUCLEATED RED BLOOD CELLS (BEAKER) (test fegt=729) 0 /100 WBC 0-0 NEUTROPHILS RELATIVE PERCENT (BEAKER) (test vrbs=333) 58 % LYMPHOCYTES RELATIVE PERCENT (BEAKER) (test tren=670) 32 % MONOCYTES RELATIVE PERCENT (BEAKER) (test ztsz=905) 6 % EOSINOPHILS RELATIVE PERCENT (BEAKER) (test jqey=424) 3 % BASOPHILS RELATIVE PERCENT (BEAKER) (test elcd=588) 0 % NEUTROPHILS ABSOLUTE COUNT (BEAKER) (test vrgi=740) 4.04 K/ L 1.56-6.13 LYMPHOCYTES ABSOLUTE COUNT (BEAKER) (test pqmd=219) 2.27 K/ L 1.18-3.74 MONOCYTES ABSOLUTE COUNT (BEAKER) (test keyk=574) 0.43 K/ L 0.24-0.36 EOSINOPHILS ABSOLUTE COUNT (BEAKER) (test biyd=345) 0.21 K/ L 0.04-0.36 BASOPHILS ABSOLUTE COUNT (BEAKER) (test kdxu=659) 0.03 K/ L 0.01-0.08 IMMATURE GRANULOCYTES-RELATIVE PERCENT (BEAKER) (test vkgs=1373) 0 % 0-1 RAD, CHEST, 2 [id number] 11:06:00Reason for exam:->CHEST PAINFINAL REPORT Chest two views INDICATION: Chest pain COMPARISON: 06/30/2015 IMPRESSION: There is no focal consolidation, vascular congestion, pleural effusion, or pneumothorax. The cardiomediastinal silhouette is unrema rkable. There are mild degenerative spine and shoulder changes. Signed: Kandi Merrill MDReport Verified Date/Time: 12/09/2017 11:06:22 Reading Location: [facility] Radiology Reading Room ABD B-SCAN, [id number] 09:57:48US ABD B-SCAN, COMPLETELOCATION: R16 INDICATION:K76.0: FATTY (CHANGE OF) LIVER, NOT ELSEWHERE CLASSIFIEDCOMPARISON: Chest radiograph 11/09/2014DISCUSSION: Grayscale and selected color Doppler ultrasound of theabdomen was performed.LIVER/BILIARY: Hepatic echogenicity is slightly increased. Liver contouris smooth. No focal hepatic lesion is seen. Right liver span is 15.3cm, which is within normal l imits. There is no evidence forintrahepatic biliary ductal dilatation. The com mon bile duct measures0.6 cm, which is within normal limits.GALLBLADDER: No gall stones are identified. The gallbladder wallmeasures 0.1 cm, which is within nor mal limits. There is nopericholecystic fluid or gallbladder hydrops. KIDNEYS: The right kidney measures 10.9 cm and the left measures 11 cm. Renal echogenic ity is within normal limits. No focal renal lesions orhydronephrosis is seen.SP ROSALIO: The spleen is normal size, measuring 8.9 cm in span. A punctatehyperechoic lesion in the spleen may be a granuloma.PANCREAS: Poorly visualized.VESSELS: The abdominal aorta and IVC are grossly unremarkable. There ishepatopetal flow in the main portal vein.IMPRESSION: 1. Slightly increased hepatic echogenicity may suggest fattyinfiltration.2. A punctate hyperechoic splenic lesion may be a g ranuloma.3. Otherwise, unremarkable abdominal ultrasound examination.
--- NOTE | 2019-07-12 07:15 | NUR ---
SPIRITUAL CARE - Pre-Surgery Assessment: Pt in bed. Pt reported supportive attention from family and friends. Intervention: I provided pastoral presence, hospitality, and sympathetic listening. I acquainted pt with availability of sign wirer while hospitalized. Outcome: Pt expressed appreciation for visit. No need for follow up indicated at this time. [facility] Spiritual Care Department O: [phone] Pager: [phone])
[2019-07-12 09:00] VITALS: BP 134/66
== END | disposition home or self-care (01) ==
LOC: OR 05:37
PROVIDERS: ATTEND Internal Medicine Gastroenterology
DX: R10.9 Unspecified abdominal pain (principal); R12 Heartburn; K31.9 Disease of stomach and duodenum, unspecified; K29.50 Unspecified chronic gastritis without bleeding; K74.60 Unspecified cirrhosis of liver; K44.9 Diaphragmatic hernia without obstruction or gangrene; E11.9 Type 2 diabetes mellitus without complications; Z79.84 Long term (current) use of oral hypoglycemic drugs; Z79.4 Long term (current) use of insulin; I10 Essential (primary) hypertension; E78.5 Hyperlipidemia, unspecified; Z01.812 Encounter for preprocedural laboratory examination; Z01.810 Encounter for preprocedural cardiovascular examination
CPT/HCPCS: 36415 ×2; 43239; 82948; 85610; 85730; 93005; J2250; J2704; J3010